=== PATIENT | male | born 1990 | race Caucasian/White ===

== ENCOUNTER 2020-05-09 23:02 | Emergency (ER) | payer SELFPAY ==
[~2020-05-09] VITALS: Ht 180.3 cm; Wt 90.9 kg
[2020-05-09 23:49] VITALS: TEMP 97.5
[2020-05-10 00:33] LABS: BASO % 0.6 % (0.0-2.0); EOS # 0.1 (0.0-0.7); EOS % 0.8 % (0-4.0); GRAN # 4.4 (1.4-6.5); GRAN % 61.6 % (42.2-75.2); HEMATOCRIT 48.7 % (42.0-52.0); HEMOGLOBIN 16.5 g/dl (13.5-18.0); LYMPH % 28.5 % (20.0-51.0); MEAN CELL VOLUME 88 fl (80.0-100.0); MEAN CORPUSCULAR HEMOGLOBIN 30 pg (27.0-31.0); MEAN CORPUSCULAR HGB CONC 34 g/dl (33.0-37.0); MEAN PLATELET VOLUME 12.3 fl (7.4-10.4); MONO # 0.6 (0.1-0.6); MONO % 7.9 % (1.7-9.3); PLATELET COUNT 219 K/mm3 (130-400); RED BLOOD COUNT 5.55 M/mm3 (4.20-5.60)
[2020-05-10 00:53] LABS: ALBUMIN 4.9 gm/dL (3.5-5.0); BILIRUBIN,TOTAL 0.6 mg/dL (0.0-1.0); CALCIUM 9.5 mg/dL (8.4-10.2); CREATININE, serum 0.78 (0.66-1.25); TOTAL PROTEIN 8.5 gm/dL (6.4-8.2)
[2020-05-10 00:56] LABS: POTASSIUM 4.6 mmol/L (3.4-5.0)
[2020-05-10] MEDS ORDERED: ZOFRAN ODT4 MG PO (01:55)
[2020-05-10] MEDS ORDERED: TRAVEL SICKNESS25 MG PO (01:55)
[2020-05-10 04:11] VITALS: BP 128/82; PULSE 82
== END 2020-05-10 04:11 | disposition home or self-care (01) ==
LOC: COL.ER 23:02
PROVIDERS: Emergency Medicine
DX: R42 Dizziness and giddiness (principal); R10.13 Epigastric pain; R11.2 Nausea with vomiting, unspecified
CPT/HCPCS: J2405; J7030